=== PATIENT | male | born 1940 | race Caucasian/White ===

== ENCOUNTER 2017-10-22 03:34 | Observation (INO) | payer BC ==
[~2017-10-22] VITALS: Ht 185.4 cm; Wt 83.0 kg
[~2017-10-22 03:34] MED LIST: ASPEC325; ATEN50TA8; ATOR10TA82; CQ 10 PO; MGN; MILK THISTLE PO; MULT-506 PO; OMEG10007
[2017-10-22 04:27] LABS: ALT/SGPT 25 U/L (12-78); AST/SGOT 21 U/L (15-37); BLOOD UREA NITROGEN 21 mg/dl (7-18); BUN/CREATININE RATIO 19.7 (10-20); CALCIUM 8.7 mg/dl (8.5-10.1); CARBON DIOXIDE 28 mmol/L (21-32); CHLORIDE 105 mmol/L (98-107); CREATININE 1.06 mg/dl (0.60-1.40); GLUCOSE 148 mg/dl (70-99); MAGNESIUM 2.2 mg/dl (1.8-2.4); POTASSIUM 3.9 mmol/L (3.5-5.1); SODIUM 140 mmol/L (136-145)
[2017-10-22 04:31] LABS: ALKALINE PHOSPHATASE 44 U/L (45-117)
[2017-10-22 04:45] LABS: MEAN CELL VOLUME 94.8 fL (80-100); MEAN CORPUSCULAR HEMOGLOBIN 32.7 pg (25-34); MEAN CORPUSCULAR HGB CONC 34.5 g/dl (32-36); MEAN PLATELET VOLUME 12.5 fL (7.4-10.4); PLATELET COUNT 102 K/uL (130-400); RED BLOOD COUNT 4.22 M/uL (4.7-6.1); WHITE BLOOD COUNT 6.98 K/uL (4.8-10.8)
[2017-10-22] MEDS ORDERED: ATEN50TA8 PO (04:53)
[2017-10-22] MEDS ORDERED: ROSU5TAB PO (04:53)
--- NOTE | 2017-10-22 05:00 | EMERGENCY ROOM VISIT NOTE ---
ED Visit Note First contact with patient: 03:42 Staff note: I have reviewed the Patients chart and have discussed this case with my PA. I generally agree with the ED note and findings.
[2017-10-22 05:13] LABS: BASO % 0.3 %; BASO ABS # 0.02 K/uL (0-0.2); COMPLETE YES; EOS % 2.4 %; LYMPH % 50.9 %; LYMPH ABS # 3.55 K/uL (1.2-3.4); MONO % 8.3 %; NEUT % 38.1 %; PLT ESTIMATE DECREASED
[2017-10-22] MEDS ORDERED: MoRPHine SULFATE 2 MG/ML CARP IV PRN (05:30)
[2017-10-22] MEDS ORDERED: ONDANSETRON INJ 2 MG/ML 2 ML VIAL IV PRN (05:30)
[2017-10-22] MEDS ORDERED: NITROGLYCERIN 0.4 MG SL PER TAB CHARGE SL PRN (05:30)
[2017-10-22] MEDS ORDERED: ALUMINUM/MAGNESIUM/SIMETH (MAALOX MAX) 30 ML UDC PO PRN (05:30)
[2017-10-22] MEDS ORDERED: ACETAMINOPHEN 325 MG TAB PO PRN (05:30)
[2017-10-22] MEDS ORDERED: MAGNESIUM HYDROXIDE SUSP 30 ML UDC PO PRN (05:30)
[2017-10-22] MEDS ORDERED: POLYETHYLENE (MIRALAX) 17 GM PACK PO PRN (05:30)
--- NOTE | 2017-10-22 05:31 | EMERGENCY ROOM VISIT NOTE ---
History First contact with patient: 03:42 Chief Complaint: SYNCOPE Stated Complaint: Syncopal episode, fall Nursing Triage Summary: Patient arrived ALS for evaluation s/p syncopal episode. Patient reports he got up to use the bathroom and next thing he knew, he was on the floor. Patient denies hitting head. Reports weakness and nausea upon arrival to ED. Denies pain. History of Present Illness The patient is a 77 year old male who presents to the Emergency Room with complaints of syncopal episode just prior to arrival. Patient states he woke up to go the bathroom and next thing he knew he was on the ground. He does not recall the events. Patient states when he did come to he felt diaphoretic and nauseous. This is all now resolved. Patient states yesterday he had a normal day and did 4 miles on the treadmill without difficulties and ate and drink without difficulties. He felt fine going to bed. Patient is unsure if he hit his head. He is on a half a full aspirin daily. Patient denies chest pain, dyspnea, abdominal pain, headache, neck pain, back pain, numbness, tingling, weakness. He denies prodromal symptoms prior to the syncopal episodes. Patient states he's passed out before with unclear etiology. Patient follows cardiology at [place]. No recent stress or echo. He states the last one was normal though. The also gives the history and states she heard the thump and yelled out to him and he appeared confused appearing for a few minutes. No seizure-like activity. She states this is brief in nature. She states he is now back to baseline. Review of Systems See HPI for pertinent positives & negatives. A total of 10 systems reviewed and were otherwise negative. Past Medical/Surgical History Medical Problems: (1) Diaphoresis (2) Syncope Coronary artery disease, hyperlipidemia and hernia repair Social History Smoking Status: Never Smoker Alcohol Use: occasionally Drug Use: none Marital Status: Housing Status: lives with family Current/Historical Medications Scheduled Atenolol (Tenormin), 50 MG PO DAILY Rosuvastatin Calcium (Crestor), 5 MG PO DAILY Physical Exam Vital Signs Date Time Temp Pulse Resp B/P (MAP) Pulse Ox O2 Delivery O2 Flow Rate FiO2 10/22/17 04:41 57 111/56 62 129/69 60 137/69 10/22/17 03:58 98 Room Air 10/22/17 03:45 58 10/22/17 03:40 57 16 135/61 98 Room Air 10/22/17 03:40 98 Room Air Physical Exam VITALS: Vitals are noted on the nurse's note and reviewed by myself. Vital signs stable. GENERAL: Pleasant male answering questions appropriately, in no acute distress, nondiaphoretic, well-developed well-nourished. SKIN: The skin was without rashes, erythema, edema, or bruising. There is no tenting of the skin. Capillary reflex less than 2 seconds. HEAD: Normocephalic atraumatic. EARS: External auditory canals clear, tympanic membranes pearly arango without erythema or effusion bilaterally. EYES: Pupils equal round and reactive to light and accommodation. Conjunctivae without injection, sclerae without icterus. Extraocular movements intact. NOSE: Patent, turbinates without inflammation or discharge. MOUTH: Mucous membranes moist. Pharynx without erythema or exudate. Uvula midline. Airway patent. Tongue does not deviate. NECK: Supple without nuchal rigidity. No lymphadenopathy. No thyromegaly. Cervical spine is nontender. No JVD. HEART: Regular rate and rhythm LUNGS: Clear to auscultation bilaterally without wheezes, rales or rhonchi. No dullness to percussion. No retractions or accessory muscle use. ABDOMEN: Positive bowel sounds x 4. Normal tympanic percussion. Soft, nontender, without masses or organomegaly. Parada sign negative. No guarding or rebound tenderness. MUSCULOSKELETAL: No muscle atrophy, erythema, or edema noted. 5 out of 5 strength throughout. NEURO: Patient was alert and oriented to person place and time. Normal sensation to light and sharp touch. No focal neurological deficits. No pronator drift. Patient unable to do cerebellar testing. Medical Decision & Procedures Laboratory Results 10/22/17 03:45 Red Blood Count 4.22, Mean Corpuscular Volume 94.8, Mean Corpuscular Hemoglobin 32.7, Mean Corpuscular Hemoglobin Concent 34.5, Mean Platelet Volume 12.5, Neutrophils (%) (Auto) 38.1, Lymphocytes (%) (Auto) 50.9, Monocytes (%) (Auto) 8.3, Eosinophils (%) (Auto) 2.4, Basophils (%) (Auto) 0.3, Neutrophils # (Auto) 2.66, Lymphocytes # (Auto) 3.55, Monocytes # (Auto) 0.58, Eosinophils # (Auto) 0.17, Basophils # (Auto) 0.02 10/22/17 03:45 Test 10/22/17 03:45 10/22/17 03:50 10/22/17 04:00 White Blood Count 6.98 K/uL (4.8-10.8) Red Blood Count 4.22 M/uL (4.7-6.1) Hemoglobin 13.8 g/dL (14.0-18.0) Hematocrit 40.0 % (42-52) Mean Corpuscular Volume 94.8 fL (80-100) Mean Corpuscular Hemoglobin 32.7 pg (25-34) Mean Corpuscular Hemoglobin Concent 34.5 g/dl (32-36) Platelet Count 102 K/uL (130-400) Mean Platelet Volume 12.5 fL (7.4-10.4) Neutrophils (%) (Auto) 38.1 % Lymphocytes (%) (Auto) 50.9 % Monocytes (%) (Auto) 8.3 % Eosinophils (%) (Auto) 2.4 % Basophils (%) (Auto) 0.3 % Neutrophils # (Auto) 2.66 K/uL (1.4-6.5) Lymphocytes # (Auto) 3.55 K/uL (1.2-3.4) Monocytes # (Auto) 0.58 K/uL (0.11-0.59) Eosinophils # (Auto) 0.17 K/uL (0-0.5) Basophils # (Auto) 0.02 K/uL (0-0.2) RDW Standard Deviation 45.0 fL (36.4-46.3) RDW Coefficient of Variation 13.1 % (11.5-14.5) Immature Granulocyte % (Auto) 0.0 % Immature Granulocyte # (Auto) 0.00 K/uL (0.00-0.02) Platelet Estimate DECREASED Anion Gap 7.0 mmol/L (3-11) Est Creatinine Clear Calc Drug Dose 65.9 ml/min Estimated GFR () 78.1 Estimated GFR (Non- 67.4 BUN/Creatinine Ratio 19.7 (10-20) Calcium Level 8.7 mg/dl (8.5-10.1) Magnesium Level 2.2 mg/dl (1.8-2.4) Total Bilirubin 1.0 mg/dl (0.2-1) Direct Bilirubin 0.2 mg/dl (0-0.2) Aspartate Amino Transf (AST/SGOT) 21 U/L (15-37) Alanine Aminotransferase (ALT/SGPT) 25 U/L (12-78) Alkaline Phosphatase 44 U/L (45-117) Troponin I < 0.015 ng/ml (0-0.045) Total Protein 6.7 gm/dl (6.4-8.2) Albumin 3.4 gm/dl (3.4-5.0) Bedside Glucose 147 mg/dl (70-99) Bedside Troponin I < 0.030 ng/ml (0-0.045) ED Course Prior records/ancillary studies reviewed. Triage Nursing notes reviewed. Additional history obtained from family The patient's history was concerning for syncope. Differential diagnosis: Etiologies such as vasovagal event, infection, hypoglycemia, electrolyte abnormalities, cardiac sources, intracerebral event, toxicologic, neurologic, as well as others were entertained. Physical examination: Patient is alert, interactive and answering questions appropriately ER treatment provided: IV hydration with normal saline On reassessment the patient felt better. Diagnostics interpretation by me: ECG: Normal sinus, normal intervals, no acute ST-T wave changes. Rate of 58. Impression sinus tachycardia interpreted by myself The labs revealed negative troponin. Mild anemia Imaging studies: CT HEAD: No acute intracranial abnormality identified. Mild chronic small vessel ischemic disease and cerebral volume loss. Atherosclerotic calcifications of the intracranial vasculature. CT C SPINE: No acute traumatic abnormality identified. Prominent degenerative changes of the cervical spine with straightening of the normal cervical lordosis. Fusion of the right C3-4 facets. Radiologist: Mere Saenz M.D. Consultation: A consultation was placed with Dr Kemp, hospitalist. The case was discussed and diagnostics were reviewed. The patient was evaluated in the ER for further treatment. This appears to be consistent with syncope with unclear etiology. Patient had a negative head CT. Normal EKG. Negative troponin. Negative orthostatics. Patient was neurovascularly and neurologically intact. He is well-appearing. He will be evaluated by medicine for possible admission. By the evaluation outlined above emergent etiologies such as infection, hypoglycemia, electrolyte abnormalities, intracerebral event, toxicologic, as well as others were deemed relatively unlikely. The pt informed about the findings as listed above. All questions were answered and pleased with the treatment. Case reviewed with my attending. Medical Decision As above Head Trauma GCS Score: 15 Medication Reconcilliation Current Medication List: was personally reviewed by me Blood Pressure Screening Patient's blood pressure: Normal blood pressure Impression Primary Impression: Syncope Additional Impression: Anemia Departure Information Dispostion Being Evaluated By Hospitalist Condition FAIR Referrals Cy Bajwa M.D. (PCP) Patient Instructions My [facility] Problem Qualifiers Primary Impression: Syncope Syncope type: unspecified Qualified Codes: R55 - Syncope and collapse
[2017-10-22] MEDS ORDERED: IV FLUIDS COMPLETED PRN (05:45)
--- NOTE | 2017-10-22 05:47 | History and Physical ---
History & Physical Date & Time of Service: Oct 22, 2017 at 05:29 Chief Complaint: Syncopal episode, fall Primary Care Physician: Cy Bajwa M.D. History of Present Illness Source: patient 77 y/o M Hx CAD with LAD stent 2002. Pt got up from bed to use the restroom and suffered a syncopal episode. He does not recall the preceding time period. His apparently heard him rattling the door knob and then dropping to the floor. He was poorly responsive and profusely diaphoretic for a few minutes following his loss of consciousness. It is unclear if he suffered any head trauma and does not have any focal pain at the time of admission. He denies CP , SOB, nausea and vomiting but states he felt he was too weak to get up following the episode. Past Medical/Surgical History 1) CAD - LAD stent at [place] 2002 2) HTN 3) HPL Family History Mother at age 81 - CHF Father due to lung CA age 71 Father and brother both had CAD and underwent CABG Social History Smoking Status: Never Smoker Immunizations History of Influenza Vaccine: N/A History of Tetanus Vaccine?: Unknown History of Pneumococcal: SEP 2007 History of Hepatitis B Vaccine: No Multi-Drug Resistant Organisms History of MDRO: No Allergies Coded Allergies: No Known Allergies (Verified Allergy, Mild, 05/21/08) Home Medications Scheduled Atenolol (Tenormin), 50 MG PO DAILY Rosuvastatin Calcium (Crestor), 5 MG PO DAILY Physical Exam Vital Signs Date Time Temp Pulse Resp B/P (MAP) Pulse Ox O2 Delivery O2 Flow Rate FiO2 10/22/17 04:41 57 111/56 62 129/69 60 137/69 10/22/17 03:58 98 Room Air 10/22/17 03:45 58 10/22/17 03:40 57 16 135/61 98 Room Air 10/22/17 03:40 98 Room Air General Appearance: WD/WN, no apparent distress Head: normocephalic, atraumatic Eyes: normal inspection, EOMI ENT: normal ENT inspection, pharynx normal Neck: supple, no JVD Respiratory/Chest: chest non-tender, lungs clear, normal breath sounds Cardiovascular: regular rate, rhythm, no edema, no gallop Abdomen/GI: normal bowel sounds, non tender, soft Back: normal inspection, no CVA tenderness, no muscle spasm, normal range of motion Extremities/Musculoskelatal: normal inspection, no calf tenderness, normal capillary refill Neurologic/Psych: undertaker assistant II-XII nml as tested, no motor/sensory deficits, alert Skin: normal color, warm/dry Diagnostics Laboratory Results Results Past 24 Hours Test 10/22/17 03:45 10/22/17 03:50 10/22/17 04:00 Range/Units White Blood Count 6.98 4.8-10.8 K/uL Red Blood Count 4.22 4.7-6.1 M/uL Hemoglobin 13.8 14.0-18.0 g/dL Hematocrit 40.0 42-52 % Mean Corpuscular Volume 94.8 80-100 fL Mean Corpuscular Hemoglobin 32.7 25-34 pg Mean Corpuscular Hemoglobin Concent 34.5 32-36 g/dl Platelet Count 102 130-400 K/uL Mean Platelet Volume 12.5 7.4-10.4 fL Neutrophils (%) (Auto) 38.1 % Lymphocytes (%) (Auto) 50.9 % Monocytes (%) (Auto) 8.3 % Eosinophils (%) (Auto) 2.4 % Basophils (%) (Auto) 0.3 % Neutrophils # (Auto) 2.66 1.4-6.5 K/uL Lymphocytes # (Auto) 3.55 1.2-3.4 K/uL Monocytes # (Auto) 0.58 0.11-0.59 K/uL Eosinophils # (Auto) 0.17 0-0.5 K/uL Basophils # (Auto) 0.02 0-0.2 K/uL RDW Standard Deviation 45.0 36.4-46.3 fL RDW Coefficient of Variation 13.1 11.5-14.5 % Immature Granulocyte % (Auto) 0.0 % Immature Granulocyte # (Auto) 0.00 0.00-0.02 K/uL Platelet Estimate DECREASED Sodium Level 140 136-145 mmol/L Potassium Level 3.9 3.5-5.1 mmol/L Chloride Level 105 98-107 mmol/L Carbon Dioxide Level 28 21-32 mmol/L Anion Gap 7.0 3-11 mmol/L Blood Urea Nitrogen 21 7-18 mg/dl Creatinine 1.06 0.60-1.40 mg/dl Est Creatinine Clear Calc Drug Dose 65.9 ml/min Estimated GFR () 78.1 Estimated GFR (Non- 67.4 BUN/Creatinine Ratio 19.7 10-20 Random Glucose 148 70-99 mg/dl Calcium Level 8.7 8.5-10.1 mg/dl Magnesium Level 2.2 1.8-2.4 mg/dl Total Bilirubin 1.0 0.2-1 mg/dl Direct Bilirubin 0.2 0-0.2 mg/dl Aspartate Amino Transf (AST/SGOT) 21 15-37 U/L Alanine Aminotransferase (ALT/SGPT) 25 12-78 U/L Alkaline Phosphatase 44 45-117 U/L Troponin I < 0.015 0-0.045 ng/ml Total Protein 6.7 6.4-8.2 gm/dl Albumin 3.4 3.4-5.0 gm/dl Bedside Glucose 147 70-99 mg/dl Bedside Troponin I < 0.030 0-0.045 ng/ml Diagnostic Radiology No acute abnormalities on head CT EKG Sinus bradycardia - no evidence of ischemia Impression Assessment and Plan 77 y/o M Hx HTN, CAD with LAD stent 2002. Pt got up from bed to use the restroom and suffered a syncopal episode. He does not recall the preceding time period. His apparently heard him rattling the door knob and then dropping to the floor. He was poorly responsive and profusely diaphoretic for a few minutes following his loss of consciousness. It is unclear if he suffered any head trauma and does not have any focal pain at the time of admission. He denies CP, SOB, nausea and vomiting but states he felt he was too weak to get up following the episode. 1) Syncope - diaphoresis and weakness - considering his history of CAD and LAD disease we will monitor on telemetry with serial enzymes. If there are any noted abnormalities on labs or rhythm monitor, Dr Pastor should be contacted as the pt was recently referred to him for local care by his lottery sales clerk at [place]. 2) CAD - he will remain on a Statin and B paula. We have added ASA. 3) HTN - cont Atenolol Full code - SCDs will be used for now as we could not r/o head trauma Total time for this admit including review of labs, meds, records, imaging - discussion with pt, , ER attending - 36 min Level of Care Telemetry Resuscitation Status FULL RESUSCITATION VTE Prophylaxis VTE Risk Assessment Done? Y/N: Yes Risk Level: Low Given or contraindicated: SCD's
[2017-10-22 06:20] VITALS: BP 127/69; PULSE 58; TEMP 36.4; O2SAT 99; Ht 185.4 cm; Wt 83.0 kg
--- NOTE | 2017-10-22 06:39 | DIAGNOSTIC IMAGING REPORT ---
CHEST ONE VIEW PORTABLE CLINICAL HISTORY: syncope COMPARISON STUDY: 05/22/2008 FINDINGS: The cardiac and mediastinal contours remain stable. There is slight elevation of the interstitium without evidence of overt failure. There is no lobar consolidation. There are no pleural effusions. There is a 1 cm left midlung zone opacity. Follow-up imaging is recommended to help differentiate a true finding from a summation. IMPRESSION: 1. Mild interstitial thickening 2. 1 cm left midlung zone opacity. Follow-up imaging is recommended to help differentiate a true parenchymal abnormality from a summation. Electronically signed by: Tj Marroquin M.D. 10/22/2017 6:37 AM Dictated Date/Time: 10/22/2017 6:32 AM
--- NOTE | 2017-10-22 06:40 | DIAGNOSTIC IMAGING REPORT ---
CT HEAD WITHOUT CONTRAST (CT) CLINICAL HISTORY: Head trauma. Syncope. COMPARISON STUDY: No previous studies for comparison. TECHNIQUE: Axial CT of the brain is performed from the vertex to the skull base. IV contrast was not administered for this examination. A dose lowering technique was utilized adhering to the principles of ALARA. CT DOSE: FINDINGS: No intra or extra-axial mass lesions are visualized. There is no CT evidence of acute cortical infarction. There is no evidence of midline shift. There is no acute hemorrhage. No calvarial fractures are visualized. There are minor white matter hypodensities likely on a small vessel basis. There is mild particular prominence, likely secondary to volume loss. There is no evidence of acute sinusitis IMPRESSION: No acute intracranial findings Electronically signed by: Tj Marroquin M.D. 10/22/2017 6:39 AM Dictated Date/Time: 10/22/2017 6:38 AM
--- NOTE | 2017-10-22 06:44 | DIAGNOSTIC IMAGING REPORT ---
CT OF THE CERVICAL SPINE CLINICAL HISTORY: Neck pain status post trauma. Syncope. COMPARISON STUDY: No previous studies for comparison. CT DOSE: 1106.87 mGy.cm TECHNIQUE: CT scan of the cervical spine was performed from the skull base to the thoracic inlet. Images are reviewed in the axial, sagittal, and coronal planes. IV contrast was not administered for this examination. A dose lowering technique was utilized adhering to the principles of ALARA. FINDINGS: The visualized portions of the lung apices reveal no evidence of pneumothorax. The prevertebral soft tissues are normal. No fractures or subluxations are visualized. There are moderate multilevel degenerative changes. There is right-sided C3-4 facet joint fusion. IMPRESSION: No evidence of acute fracture or traumatic subluxation. Electronically signed by: Tj Marroquin M.D. 10/22/2017 6:42 AM Dictated Date/Time: 10/22/2017 6:41 AM
[2017-10-22 07:53] VITALS: BP 134/65; PULSE 65; TEMP 36.4; O2SAT 98
[2017-10-22] MEDS ORDERED: ROSUVASTATIN CALCIUM 10 MG TAB PO SCH ×2 (09:00→21:00)
[2017-10-22] MEDS ORDERED: ASPIRIN/ALUM/MAGNES/CAL CARB 325 MG TAB PO SCH (09:00)
--- NOTE | 2017-10-22 11:53 | Discharge Instructions ---
Discharge Instructions Date of Service Oct 22, 2017. Admission Reason for Admission: Diaphoresis, Syncope Discharge Discharge Diagnosis / Problem: Vaso-vagal syncope Discharge Goals Goal(s): Improve function, Diagnostic testing Activity Recommendations Activity Limitations: as noted below Lifting Limitations: gradually increase as tolerated Exercise/Sports Limitations: gradually increase as tolerated Shower/Bathe: no limitations Driving or Machine Use: no limitations . Instructions / Follow-Up Instructions / Follow-Up You were seen in the hospital for a fall and questionable syncope. You were evaluated with imaging and lab work and no significant disease was found. It is believed the fall was caused by a vaso-vagal event, meaning as you stoop up at night and went to urinate your blood pressure became too low and you passed out. Rest and drink plenty of fluids as tolerated. Continue current medications. Return to the ER immediately for worsening or persistent chest pain, abdominal pain, vomiting, fevers, chest pains, difficulty breathing, worsening of your condition, or as needed. Follow up with your primary physician in 2-3 days for a recheck of your current condition. Current Hospital Diet Patient's current hospital diet: AHA Diet (Heart Healthy) Discharge Diet Recommended Diet: AHA Diet (Heart Healthy) Pending Studies Studies pending at discharge: no Medical Emergencies . Who to Call and When: Medical Emergencies: If at any time you feel your situation is an emergency, please call 911 immediately. . Non-Emergent Contact Non-Emergency issues call your: Primary Care Provider . . "Provider Documentation" section prepared by Charly Muir. . VTE Core Measure Inpt VTE Proph given/why not?: SCD's
[2017-10-22 12:00] VITALS: BP 131/63; PULSE 62; TEMP 36.3; O2SAT 98
[2017-10-22 12:17] VITALS: BP 131/63; PULSE 62; TEMP 36.3; O2SAT 98
--- NOTE | 2017-10-22 14:11 | Discharge Summary ---
Discharge Summary Date of Service Oct 22, 2017. Discharge Summary Admission Date: Oct 22, 2017 at 05:29 Discharge Date: Oct 22, 2017 Discharge Disposition: Home Principal Diagnosis: Vaso-vagal syncope Immunizations: Have You Had Influenza Vaccine: N/A History of Tetanus Vaccine?: Unknown History of Pneumococcal: SEP 2007 History of Hepatitis B Vaccine: No Medication Reconciliation Continued Medications: Atenolol (Tenormin) 50 Mg Tab 50 MG PO DAILY, TAB Rosuvastatin Calcium (Crestor) 5 Mg Tab 5 MG PO DAILY, TAB Discharge Exam Review of Systems: Constitutional: No fever, No chills, No fatigue Eyes: No diplopia ENT: No sore throat Respiratory: No cough, No sputum, No shortness of breath Cardiovascular: No chest pain, No orthopnea, No PND, No palpitations Abdomen: No pain, No nausea, No vomiting, No diarrhea, No constipation Psychiatric: No anxiety Physical Exam: General Appearance: WD/WN, no apparent distress Eyes: normal inspection, sclerae normal Neck: supple, no carotid bruits Respiratory/Chest: chest non-tender, lungs clear, normal breath sounds, no respiratory distress, no accessory muscle use Cardiovascular: regular rate, rhythm, no edema, no gallop, no murmur Abdomen / GI: normal bowel sounds, non tender, soft Extremities: normal inspection, no calf tenderness Neurologic/Psychiatric: color worker II-XII nml as tested, no motor/sensory deficits , alert, normal mood/affect, oriented x 3 Hospital Course Patient is a 77 year old male that presented to the ED early this evening after a fall at home. He woke up early this morning to go to the bathroom, urinated, and then grab the door handle of the bathroom and fell onto the ground. The patient does not have much recollection of any of the events that happened afterwards. His only heard the shaking of the door handle, but found the patient on the ground and that he was poorly responsive. The patient was admitted for observation to the hospital and had EKG, troponins, CXR, CBC, BMP, and Head CT performed that were all within normal limits. This morning the patient has no acute complaints and states that he is at his baseline level of functioning with no residual symptoms. The patient will be discharge home on his previous doses of Atenolol and Crestor with instructions to follow up with Dr. Bajwa and Dr. Pastor as soon as possible. Based on the history and evaluation it appears he suffered a vaso-vagal syncopal event. It would be reasonable to order an echocardiogram as an outpatient (last one was in 2009) to rule out any other possibilities of his syncope. Total Time Spent: Greater than 30 minutes This includes examination of the patient, discharge planning, medication reconciliation, and communication with other providers. Discharge Instructions Please refer to the electronic Patient Visit Report (Discharge Instructions) for additional information. Additional Copies To Cy Bajwa M.D. Resident Tracking Resident Involvement: Resident Care Provided Care Provided: [facility] Medicine
== END 2017-10-22 13:07 | disposition home or self-care (01) ==
LOC: EDBD 03:34 → C.EDA 03:37 → C.2E 05:29 → ENRESERV 05:39
PROVIDERS: ADMIT Internal Medicine; ATTEND Student in an Organized Health Care Education/Training Program
DX: R55 Syncope and collapse (principal); E78.5 Hyperlipidemia, unspecified; I25.10 Atherosclerotic heart disease of native coronary artery without angina pectoris; Z79.82 Long term (current) use of aspirin; Z82.49 Family history of ischemic heart disease and other diseases of the circulatory system; Z80.1 Family history of malignant neoplasm of trachea, bronchus and lung; Z79.899 Other long term (current) drug therapy

== ENCOUNTER → 2017-11-02 | Outpatient (CLI) | payer BC ==
[~2017-11-02] MED LIST changes: -ASPEC325; -ATEN50TA8; +ATEN50TA8 PO; -ATOR10TA82; -CQ 10 PO; -MGN; -MILK THISTLE PO; -MULT-506 PO; -OMEG10007; +ROSU5TAB PO
--- NOTE | 2017-11-02 15:48 | DIAGNOSTIC IMAGING REPORT ---
TWO VIEW CHEST CLINICAL HISTORY: Follow-up abnormal chest x-ray. FINDINGS: PA and lateral chest radiographs are compared to study dated 10/22/2017. The cardiomediastinal silhouette is unremarkable. There is mild atherosclerotic calcification of the thoracic aorta. The lungs and pleural spaces are clear. There is no pneumothorax. The skeletal structures are osteopenic. The bony thorax appears intact. Degenerative change is seen in the thoracic spine. IMPRESSION: 1. No active disease in the chest. 2. The left upper lobe opacity questioned on 10/22/2017 is no longer identified and was likely artifactual. Electronically signed by: Pedrito Murillo M.D. 11/02/2017 3:47 PM Dictated Date/Time: 11/02/2017 3:45 PM
== END | disposition home or self-care (01) ==
LOC: C.RAD1850 15:10
PROVIDERS: ATTEND Family Medicine
DX: R93.8 Abnormal findings on diagnostic imaging of other specified body structures (principal)

== ENCOUNTER → 2017-12-01 | Outpatient (CLI) | payer BC | END | disposition home or self-care (01) | LOC: C.RDSM 13:42 | PROVIDERS: ATTEND Orthopaedic Surgery | DX: M25.561 Pain in right knee (principal) ==